=== PATIENT | male | born 1975 | race African-American/Black ===

== ENCOUNTER 2017-10-17 19:35 | Emergency (ER) | payer MEDICAID ==
[2017-10-17] MEDS ORDERED: Acetaminophen 325 MG Tab PO ONE (20:36)
--- NOTE | 2017-10-17 20:50 | EDM.PDOCBH ---
ED HPI GENERAL MEDICAL PROBLEM - General Chief Complaint: Behavioral/Psych Stated Complaint: SUICIDAL Time Seen by Provider: 10/17/17 20:00 Source of Information: Reports: Patient History Limitations: Reports: No Limitations - History of Present Illness INITIAL COMMENTS - FREE TEXT/NARRATIVE: Simeon comes into [facility] ED with a rambling story of psychosocial problems including antisocial behaviors, relationship issues with spouse and "white people", homelessness, and unemployment. He is from [place], x 12 years, but for the past 3 years. His children age 7 and 11 are in foster care and receive child protection services. 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 His spouse has an OPF on him, and he has recently been arrested for trespassing. He is frustrated, angry, confused, and wants to get "away from it all". He is not suicidal, but did suggest some homicidal ideation towards whites without plan, proximity or lethality. - Related Data Allergies Allergy/AdvReac Type Severity Reaction Status Date / Time No Known Allergies Allergy Verified 10/17/17 20:41 Home Meds: Home Meds NK [No Known Home Meds] 10/17/17 [History] ED ROS GENERAL - Review of Systems Review Of Systems: ROS reveals no pertinent complaints other than HPI. ED EXAM, BEHAVIORAL HEALTH - Physical Exam Exam: See Below Exam Limited By: No Limitations General Appearance: Alert, WD/WN, No Apparent Distress, Anxious Eye Exam: Bilateral Eye: EOMI, Normal Inspection, PERRL Ears: Normal External Exam Nose: Normal Inspection Throat/Mouth: Normal Inspection Head: Normocephalic Neck: Normal Inspection Respiratory/Chest: Lungs Clear Cardiovascular: Regular Rate, Rhythm Back Exam: Normal Inspection Extremities: Normal Inspection Neurological: Alert, CN II-XII Intact, Normal Cognition, Normal Gait, No Motor/ Sensory Deficits, Oriented x 3 Psychiatric: Restless, Agitated, Pressured Speech, Paranoid Thoughts Skin Exam: Warm, Dry, Intact COURSE, BEHAVIORAL HEALTH COMP - Course Vital Signs: There was some observed de-escalation of sxs during interview. He lastly wanted transportation to [place], and will attempt to provide a voucher for this service. Orders, Labs, Meds: Medications Discontinued Medications Generic Name Dose Route Start Last Admin Trade Name Freq PRN Reason Stop Dose Admin Acetaminophen 650 mg 10/17/17 20:36 10/17/17 20:41 Tylenol PO 10/17/17 20:37 650 mg NOW ONE Administration Departure - Departure Time of Disposition: 20:53 Disposition: Home, Self-Care 01 Condition: Fair Clinical Impression: Adjustment disorder, unspecified Qualifiers: Adjustment disorder type: with conduct disturbance Qualified Code(s): F43.24 - Adjustment disorder with disturbance of conduct - Discharge Information Referrals: PCP,None [Primary Care Provider] - Forms: ED Department Discharge - Problem List & Annotations (1) Adjustment disorder, unspecified SNOMED Code(s): 74204343 Code(s): F43.20 - ADJUSTMENT DISORDER, UNSPECIFIED Status: Acute Annotation/Comment:: Simeon seemed to de-escalate at the prospect of obtaining transportation to [place] this evening. No meds were dispensed. He was advised to seek [facility]. Qualifiers: Adjustment disorder type: with conduct disturbance Qualified Code(s): F43.24 - Adjustment disorder with disturbance of conduct - Problem List Review Problem List Initiated/Reviewed/Updated: Yes - Assessment/Plan Plan: Follow up if needed.
== END 2017-10-17 21:11 | disposition home or self-care (01) ==
LOC: FB.ED 19:35
DX: F43.24 Adjustment disorder with disturbance of conduct (principal)
CPT/HCPCS: 99284; A9270